=== PATIENT | female | born 1975 | race Native Hawaiian/Other Pacific Islander ===

== ENCOUNTER 2022-09-04 23:39 | Emergency (ER) | payer OTHER ==
[~2022-09-04] VITALS: Ht 180.3 cm; Wt 181.4 kg
[2022-09-04 23:45] VITALS: TEMP 98
[2022-09-05 00:50] VITALS: BP 139/78
== END 2022-09-05 00:50 | disposition home or self-care (01) ==
LOC: ED 23:39
DX: M75.101 Unspecified rotator cuff tear or rupture of right shoulder, not specified as traumatic (principal); T43.225A Adverse effect of selective serotonin reuptake inhibitors, initial encounter; E66.8 Other obesity; T50.995A Adverse effect of other drugs, medicaments and biological substances, initial encounter; X58.XXXA Exposure to other specified factors, initial encounter; Y92.89 Other specified places as the place of occurrence of the external cause
CPT/HCPCS: 99282